=== PATIENT | female | born 1995 | race Caucasian/White ===

== ENCOUNTER 2017-12-28 01:45 | Emergency (ER) | payer OTHER ==
[~2017-12-28] VITALS: Ht 167.6 cm; Wt 113.4 kg
[2017-12-28] MEDS ORDERED: CLARITIN10 MG PO (03:29)
== END 2017-12-28 05:14 | disposition home or self-care (01) ==
LOC: ER 01:45
DX: M25.571 Pain in right ankle and joints of right foot (principal); F10.99 Alcohol use, unspecified with unspecified alcohol-induced disorder